=== PATIENT | male | born 1960 | race Caucasian/White ===

== ENCOUNTER → 2016-08-28 | Outpatient (CLI) | payer BC ==
--- NOTE | 2016-08-29 08:03 | XR ---
EXAMINATION TYPE: XR chest 2V DATE OF EXAM: 08/28/2016 4:50 PM COMPARISON: 10/15/2014 INDICATION: Wheezing short of breath TECHNIQUE: Single frontal view of the chest is obtained. FINDINGS: The heart size is normal. The pulmonary vasculature is normal. The lungs are clear. IMPRESSION: 1. No acute pulmonary process.
== END | disposition home or self-care (01) ==
LOC: RADXRMAIN 16:38
PROVIDERS: ATTEND Internal Medicine Cardiovascular Disease
DX: R06.02 Shortness of breath (principal)
CPT/HCPCS: 71020

== ENCOUNTER → 2020-05-01 | Outpatient (CLI) | payer BC | END | disposition home or self-care (01) | LOC: LABWHC1 09:50 | PROVIDERS: ATTEND Family Medicine | DX: Z20.828 Contact with and (suspected) exposure to other viral communicable diseases (principal) | CPT/HCPCS: U0003; C9803 ==

== ENCOUNTER → 2021-01-31 | Outpatient (CLI) | payer BC ==
--- NOTE | 2021-01-31 10:43 | CT ---
EXAMINATION TYPE: CT chest w con DATE OF EXAM: 01/31/2021 COMPARISON: None HISTORY: Shortness of breath, coughing CT DLP: 381.3 mGycm Automated exposure control for dose reduction was used. TECHNIQUE: CT scan of the chest is performed with IV Contrast, patient injected with 100 mL of Isovue 300. MIP Images are created on CT scanner and reviewed. 3D reconstructed images are created on an independent workstation and reviewed. FINDINGS: LUNGS: The lungs are grossly clear, there is no concerning parenchymal mass or nodule identified. T here is no pleural effusion or pneumothorax seen. The tracheobronchial tree is patent. Mild Ackerman changes are noted. Apical pleural thickening noted. 1 to 2 mm nodule anterior portion left upper lobe and 1 mm right lower lobe with subpleural 1 to 2 mm nodule left lower lobe posteriorly 2 small to ch aracterize. Likely benign. MEDIASTINUM: There are no greater than 1 cm hilar or mediastinal lymph nodes. Atherosclerotic change aorta. Central pulmonary arteries enhance normally. Mild peribronchial thickening centrally is nonspe cific. Coronary artery calcification noted. Small hiatal hernia noted.. OTHER: Hypertrophic and degenerative changes of the spine. Cortical loss involving the right kidney compatible with chronic medical renal disease. IMPRESSION: 1. COPD with coronary artery calcification correlate clinically. No diagnostic evidence of focal bony . Nonspecific peribronchial central thickening noted to be followed on short-term basis.
== END | disposition home or self-care (01) ==
LOC: RADCTMAIN 07:26
PROVIDERS: ATTEND Internal Medicine Cardiovascular Disease
DX: R06.02 Shortness of breath (principal)
CPT/HCPCS: 71260; Q9967